=== PATIENT | male | born 1955 | race Caucasian/White ===

== ENCOUNTER 2017-01-30 08:29 | Day surgery (SDC) | payer MEDICARE ==
--- NOTE | 2017-01-30 07:44 | History and Physical Report ---
DATE: 01/30/2017. CHIEF COMPLAINT: This patient presents with a history of an intractable radiculitis managed by spinal opioid infusion system with hydromorphone. HISTORY OF PRESENT ILLNESS: Over the last number of refills and maintenance, it has been identified to have battery depletion. He is here for pump battery replacement. PAST MEDICAL HISTORY: Hypertension, peripheral vascular disease. PAST SURGICAL HISTORY: Multiple fracture repairs, pump implant. MEDICATIONS ON ADMISSION: To be provided. ALLERGIES: None. SOCIAL HISTORY: Smoking, caffeine consumption. FAMILY HISTORY: Hypertension. REVIEW OF SYSTEMS: The patient is appropriate and in no acute distress. The remainder of the systems review shows blood pressure, peripheral edema, degenerative arthritis. PHYSICAL EXAMINATION: General: Height is 5 feet, 9 inches. Weight is 200 pounds. Vital Signs: Not available. HEENT: Within normal limits. Lungs: Clear. Heart: Regular rate and rhythm. Abdomen: Nontender. Musculoskeletal: Examination of the musculoskeletal system shows the pump at the posterior gluteal margin. The incisional sites are intact. Primary pain pattern is diffuse throughout the upper and lower extremities. Sensory eason are intact. Neurologic: Cranial nerves are intact. IMPRESSION: 1. INTRACTABLE LUMBAR RADICULITIS, ICD-10 CODE M54.16 AND M54.17. 2. IMPLANTED SPINAL INFUSION SYSTEM WITH HYDROMORPHONE WITH BATTERY DEPLETION. PLAN: This patient is here for battery replacement on an outpatient basis. The potential risks, side effects, and complications have all been carefully reviewed and discussed. BOLIVAR GALVEZ D.O. Date & Time JOB NUMBER: [id number] cc: Primary [facility]
[~2017-01-30 08:29] MED LIST: ACETAMINOPHEN 1,000 MG/100 ML BTL IV ONE; CEFAZOLIN 2 Gram 2 GM/50 ML BAG IVPB ONE; FAMOTIDINE 20MG TABLET PO ONE; HYDROMORPHONE HCL 0.6 GM in 0.9 % SODIUM CHLORIDE 10ML VIA 20 ML IV ONE; HYDROMORPHONE HCL/PF 0.002 MG in 0.9 % SODIUM CHLORIDE 10ML VIA 0.998 ML IVP ONE; MECLIZINE 25 MG TABLET PO ONE; METOCLOPRAMIDE 10 MG TABLET PO ONE
[2017-01-30] MEDS ORDERED: CEFAZOLIN 1G VIAL IM ONE (13:42)
--- NOTE | 2017-01-30 15:02 | Operative Note - [place] ---
DATE OF SURGERY: 01/30/17 PREOPERATIVE DIAGNOSES: 1. POST LAMINECTOMY SYNDROME, ICD-10 CODE M96.1. 2. LUMBAR RADICULITIS, ICD-10 CODE M54.16 AND M54.17. 3. INTRASPINAL OPIOID INFUSION SYSTEM HYDROMORPHONE BATTERY DEPLETION. OPERATION: 1. INCISION, SUBCUTANEOUS DISSECTION, AND REMOVAL AND REPLACEMENT OF INTERNAL PROGRAMMABLE PUMP FOR SPINAL INFUSION RIGHT POSTERIOR GLUTEAL MARGIN. 2. DIAGNOSTIC MYELOGRAPHY WITH RADIOLOGIC SUPERVISION AND INTERPRETATION. 3. PROGRAMMING OF PUMP TO DELIVER BY CONTINUOUS INFUSION HYDROMORPHONE BASAL RATE. SURGEON: BOLIVAR GALVEZ D.O. ANESTHESIA: LOCAL SEDATION. ANESTHESIA PROVIDER: JERONIMO MICHEL CRNA INDICATION: This patient presents with a history of intractable lumbar radiculitis. Due to the failure of all therapies and the success of the infusion and his battery depletion, he is here for replacement of battery. PROCEDURE: Intravenous line, vital sign monitoring, IV sedation, prepped and draped with sterile technique. Under imaging, with the patient prone, the previous pouch at the right posterior gluteal margin identified, marked, skin infiltrated, incision made, and subcutaneous dissection was conducted to the indwelling pump, which was then exteriorized after the Dacron sheath was opened. The pump was then from the internal catheter and a new pump placed on the field pre-filled with Hydromorphone. With the pump catheter connection intact, 1 mL of catheter content was aspirated through the access port clearing the catheter of opioid and CSF mixture. Diagnostic myelography was performed; the resulting contrast flow showed the tip of the catheter approximating T8, appropriate flow characteristics noted. There were no leaks, kinks, or bends in the pump catheter or its component in the spinal space. The flow characteristics appropriate and the pump in the pouch was secured to the fascia with nonabsorbable suture, then the Dacron pouch was closed and then the subcuticular fascial layer was performed, then a running subcuticular for skin with 2-0 and 3-0 Vicryl. Dermabond closure was then performed. The pump was programmed back to his original parameters. He was transported to the Recovery Room, stable, showing no side-effects from the procedure or the sedation. In the Recovery Room, patient was checked and found to be appropriate. He was prepared for discharge. DISCHARGE INSTRUCTIONS: 1. Sites to remain clean and dry. No showering or bathing in any way that would disrupt dressings. If it happens, contact the clinic. 2. Standard medications resumed including Levaquin, the antibiotic, 500 mg once a day for 14 days. 3. The patient will be seen in the office in 3-5 days. Until then, his activity levels should stay low. All other instructions were provided, numbers to contact with problems given and a review of the opioid side-effects provided. cc: Primary Physician JOB NUMBER: [id number] MTDD
[2017-01-30] MEDS ORDERED: FENTANYL PF 100MCG/2ML VIAL IV ONE (15:34)
[2017-01-30] MEDS ORDERED: MORPHINE SULFATE 5 MG/ML PFS IVP ONE (15:34)
[2017-01-30] MEDS ORDERED: LIDOCAINE 2% MDV (20MG/ML) 20ML VIAL IV ONE (15:34)
[2017-01-30] MEDS ORDERED: MIDAZOLAM HCL 2MG/2ML VIAL IV ONE (15:34)
[2017-01-30] MEDS ORDERED: PROPOFOL 10 MG/ML VIAL IV ONE (15:34)
== END 2017-01-30 10:53 | disposition home or self-care (01) ==
LOC: SUR 08:29
PROVIDERS: ATTEND Pain Medicine Interventional Pain Medicine
DX: T85.695A Other mechanical complication of other nervous system device, implant or graft, initial encounter (principal); M96.1 Postlaminectomy syndrome, not elsewhere classified; M54.16 Radiculopathy, lumbar region; M54.17 Radiculopathy, lumbosacral region; I10 Essential (primary) hypertension
CPT/HCPCS: 62362; 00300; 62367; Q9967; J1170; J3010; J0690; J2270